=== PATIENT | female | born 1975 | race Caucasian/White ===

== ENCOUNTER → 2016-07-23 | Outpatient (CLI) | payer BC | LOC: SLEEP 21:30 | DX: G47.33 Obstructive sleep apnea (adult) (pediatric) (principal) | CPT/HCPCS: 95810 ==

== ENCOUNTER 2016-07-24 15:23 | Emergency (ER) | payer BC ==
[2016-07-24 18:13] LABS: HEMOGLOBIN 14.4 gm/dl (12.3-15.3); RED BLOOD COUNT 4.45 M/UL (4.00-5.10); WHITE BLOOD COUNT 9.7 K/UL (4.5-11.0)
[2016-07-24 18:41] LABS: BUN/CREATININE RATIO 13 (0-10)
== END 2016-07-24 22:20 | disposition home or self-care (01) ==
LOC: ER1 15:23
PROVIDERS: Physician Assistant
DX: R60.0 Localized edema (principal); Z88.5 Allergy status to narcotic agent; Z79.899 Other long term (current) drug therapy
CPT/HCPCS: 36415; 71020; 80053; 81001; 82550; 82553; 83874; 83880; 84443; 84484; 85025; 85379; 93005; 96374; 99284; J1940

== ENCOUNTER → 2020-03-31 | Outpatient (CLI) | payer BC, OTHER ==
[~2020-03-31] MED LIST: AMBIEN10 MG PO; ESTRACE1 MG PO; IBUPROFEN600 MG PO; NORCO 5-325 TA1 EACH PO; PERCOCET 5/325 T1 EA PO; ZOLOFT25 MG PO
[2020-03-31 17:08] LABS: HEMOGLOBIN 10.8 gm/dl (12.3-15.3); RED BLOOD COUNT 2.77 M/UL (4.00-5.10); WHITE BLOOD COUNT 16.1 K/UL (4.5-11.0)
== END ==
LOC: LAB 16:02
PROVIDERS: Internal Medicine
DX: R10.84 Generalized abdominal pain (principal); R30.0 Dysuria
CPT/HCPCS: 36415; 85025

== ENCOUNTER → 2020-09-02 | Outpatient (CLI) | payer BC, OTHER ==
[2020-09-02 17:38] LABS: HEMOGLOBIN 8.3 gm/dl (12.3-15.3); RED BLOOD COUNT 2.39 M/UL (4.00-5.10); WHITE BLOOD COUNT 7.1 K/UL (4.5-11.0)
== END ==
LOC: LAB 15:28
PROVIDERS: Internal Medicine
DX: D59.19 Other autoimmune hemolytic anemia (principal)
CPT/HCPCS: 36415; 85025

== ENCOUNTER → 2020-10-07 | Outpatient (CLI) | payer BC ==
[2020-10-07 14:20] LABS: HEMOGLOBIN 7.6 gm/dl (12.3-15.3)
== END ==
LOC: LAB 13:18
PROVIDERS: Internal Medicine
DX: D59.19 Other autoimmune hemolytic anemia (principal)
CPT/HCPCS: 36415; 85014; 85018; 86850; 86900; 86901; 86920; 86922; J7050; P9016

== ENCOUNTER → 2020-10-08 | Outpatient (CLI) | payer BC | LOC: OPSV 09:34 | DX: D59.19 Other autoimmune hemolytic anemia (principal); D59.10 Autoimmune hemolytic anemia, unspecified | CPT/HCPCS: 36430; J7050; P9016 ==

== ENCOUNTER → 2020-10-27 | Outpatient (CLI) | payer BC ==
[2020-10-27 17:04] LABS: RED BLOOD COUNT 2.38 M/UL (4.00-5.10); WHITE BLOOD COUNT 5.4 K/UL (4.5-11.0)
== END ==
LOC: LAB 16:25
PROVIDERS: Internal Medicine
DX: D59.19 Other autoimmune hemolytic anemia (principal)
CPT/HCPCS: 82728; 83540; 83550; 85025

== ENCOUNTER → 2020-11-02 | Outpatient (CLI) | payer BC ==
[2020-11-04 11:14] LABS: CERULOPLASMIN 36.5 mg/dL (19.0-39.0)
== END ==
LOC: LAB 17:39
PROVIDERS: Internal Medicine
DX: E83.00 Disorder of copper metabolism, unspecified (principal)
CPT/HCPCS: 36415; 82390; 82525; 83655; 84630

== ENCOUNTER → 2020-12-03 | Outpatient (CLI) | payer BC ==
[2020-12-03 12:11] LABS: HEMOGLOBIN 8.1 gm/dl (12.3-15.3); RED BLOOD COUNT 2.33 M/UL (4.00-5.10)
== END ==
LOC: LAB 11:45
PROVIDERS: Internal Medicine
DX: D59.10 Autoimmune hemolytic anemia, unspecified (principal)
CPT/HCPCS: 36415; 85025

== ENCOUNTER → 2020-12-23 | Outpatient (CLI) | payer BC ==
[2020-12-23 08:56] LABS: RED BLOOD COUNT 1.95 M/UL (4.00-5.10); WHITE BLOOD COUNT 3.3 K/UL (4.5-11.0)
[2020-12-23 09:00] LABS: HEMOGLOBIN 6.5 gm/dl (12.3-15.3)
== END ==
LOC: LAB 08:29
PROVIDERS: Internal Medicine
DX: D59.19 Other autoimmune hemolytic anemia (principal)
CPT/HCPCS: 36415; 85025; 86850; 86870; 86900; 86901; 86920; 86922; P9016

== ENCOUNTER → 2020-12-24 | Outpatient (CLI) | payer BC | LOC: OPSV 08:45 | DX: D59.19 Other autoimmune hemolytic anemia (principal) | CPT/HCPCS: 36430; P9016 ==

== ENCOUNTER → 2020-12-27 | Outpatient (CLI) | payer BC ==
[2020-12-27 16:12] LABS: RED BLOOD COUNT 2.72 M/UL (4.00-5.10); WHITE BLOOD COUNT 5.4 K/UL (4.5-11.0)
[2020-12-27 16:17] LABS: HEMOGLOBIN 8.8 gm/dl (12.3-15.3)
== END ==
LOC: LAB 15:36
PROVIDERS: Internal Medicine
DX: D59.19 Other autoimmune hemolytic anemia (principal)
CPT/HCPCS: 85025

== ENCOUNTER → 2020-12-31 | Outpatient (CLI) | payer BC ==
[2020-12-31 16:33] LABS: HEMOGLOBIN 8.1 gm/dl (12.3-15.3); RED BLOOD COUNT 2.5 M/UL (4.00-5.10); WHITE BLOOD COUNT 5.9 K/UL (4.5-11.0)
== END ==
LOC: LAB 15:49
PROVIDERS: Internal Medicine
DX: D59.19 Other autoimmune hemolytic anemia (principal)
CPT/HCPCS: 36415; 85025

== ENCOUNTER → 2021-01-07 | Outpatient (CLI) | payer BC | LOC: EROP 17:36 | DX: D50.9 Iron deficiency anemia, unspecified (principal) | CPT/HCPCS: 36430 ==

== ENCOUNTER → 2021-01-13 | Outpatient (CLI) | payer BC ==
[2021-01-13 16:44] LABS: HEMOGLOBIN 8.1 gm/dl (12.3-15.3); RED BLOOD COUNT 2.48 M/UL (4.00-5.10); WHITE BLOOD COUNT 5.6 K/UL (4.5-11.0)
== END ==
LOC: LAB 15:48
PROVIDERS: Internal Medicine
DX: D59.19 Other autoimmune hemolytic anemia (principal)
CPT/HCPCS: 36415; 82728; 83540; 83550; 85025

== ENCOUNTER → 2021-01-18 | Outpatient (CLI) | payer BC ==
[2021-01-18 16:56] LABS: HEMOGLOBIN 7.4 gm/dl (12.3-15.3); RED BLOOD COUNT 2.3 M/UL (4.00-5.10); WHITE BLOOD COUNT 7.2 K/UL (4.5-11.0)
== END ==
LOC: LAB 15:55
PROVIDERS: Internal Medicine
DX: D59.10 Autoimmune hemolytic anemia, unspecified (principal)
CPT/HCPCS: 36415; 85025

== ENCOUNTER → 2021-01-22 | Outpatient (CLI) | payer BC ==
[2021-01-22 09:18] LABS: RED BLOOD COUNT 2.11 M/UL (4.00-5.10); WHITE BLOOD COUNT 4.5 K/UL (4.5-11.0)
[2021-01-22 09:59] LABS: HEMOGLOBIN 6.8 gm/dl (12.3-15.3)
== END ==
LOC: LAB 08:52
PROVIDERS: Internal Medicine
DX: D59.19 Other autoimmune hemolytic anemia (principal)
CPT/HCPCS: 36415; 85025; 86850; 86900; 86901; 86920; 86922; P9016

== ENCOUNTER → 2021-01-23 | Outpatient (CLI) | payer BC | LOC: EROP 08:06 | DX: D59.19 Other autoimmune hemolytic anemia (principal) | CPT/HCPCS: 36430; P9016 ==

== ENCOUNTER → 2021-01-27 | Outpatient (CLI) | payer BC ==
[2021-01-27 16:16] LABS: HEMOGLOBIN 7.4 gm/dl (12.3-15.3); RED BLOOD COUNT 2.32 M/UL (4.00-5.10); WHITE BLOOD COUNT 7.3 K/UL (4.5-11.0)
== END ==
LOC: LAB 15:57
PROVIDERS: Internal Medicine
DX: D59.19 Other autoimmune hemolytic anemia (principal)
CPT/HCPCS: 85025

== ENCOUNTER → 2021-02-02 | Outpatient (CLI) | payer BC | LOC: OPSV 02-01 08:00 | DX: D59.19 Other autoimmune hemolytic anemia (principal) | CPT/HCPCS: 36430; J7050 ==

== ENCOUNTER → 2021-02-16 | Outpatient (CLI) | payer BC ==
[2021-02-16 12:54] LABS: HEMOGLOBIN 7.5 gm/dl (12.3-15.3)
== END ==
LOC: OPSV 02-15 10:00
PROVIDERS: Internal Medicine
DX: D59.19 Other autoimmune hemolytic anemia (principal)
CPT/HCPCS: 36415; 36430; 85014; 85018

== ENCOUNTER → 2021-02-19 | Outpatient (CLI) | payer BC ==
[~2021-02-19] MED LIST changes: +ZOLPIDEM TART12.5 MG PO
[2021-02-19 12:15] LABS: HEMOGLOBIN 7.1 gm/dl (12.3-15.3); RED BLOOD COUNT 2.3 M/UL (4.00-5.10); WHITE BLOOD COUNT 4.3 K/UL (4.5-11.0)
== END ==
LOC: LAB 11:59
PROVIDERS: Internal Medicine
DX: Z53.9 Procedure and treatment not carried out, unspecified reason (principal)
CPT/HCPCS: 85027

== ENCOUNTER → 2021-02-22 | Outpatient (CLI) | payer BC ==
[~2021-02-22] MED LIST changes: -ZOLPIDEM TART12.5 MG PO
[2021-02-22 15:42] LABS: HEMOGLOBIN 6.4 gm/dl (12.3-15.3)
== END ==
LOC: LAB 13:34
PROVIDERS: Internal Medicine
DX: D59.19 Other autoimmune hemolytic anemia (principal)
CPT/HCPCS: 36415; 85014; 85018; 86850; 86870; 86880; 86902; 86920; 86922

== ENCOUNTER → 2021-02-24 | Outpatient (CLI) | payer BC ==
[~2021-02-24] MED LIST changes: +ZOLPIDEM TART12.5 MG PO
== END ==
LOC: OPSV 08:22
DX: D59.19 Other autoimmune hemolytic anemia (principal)
CPT/HCPCS: 36430; J7050

== ENCOUNTER → 2021-03-03 | Day surgery (SDC) | payer BC ==
[2021-03-03 06:28] LABS: RED BLOOD COUNT 2.4 M/UL (4.00-5.10); WHITE BLOOD COUNT 4.8 K/UL (4.5-11.0)
== END | disposition home or self-care (01) ==
LOC: OR 05:25
PROVIDERS: Surgery
DX: D59.10 Autoimmune hemolytic anemia, unspecified (principal); D69.6 Thrombocytopenia, unspecified; E78.5 Hyperlipidemia, unspecified; K21.9 Gastro-esophageal reflux disease without esophagitis; E66.01 Morbid (severe) obesity due to excess calories; Z68.41 Body mass index [BMI] 40.0-44.9, adult; Z88.5 Allergy status to narcotic agent; Z79.899 Other long term (current) drug therapy; Z20.822 Contact with and (suspected) exposure to COVID-19
CPT/HCPCS: 36415; 71045; 77001; 85027; 86850; 86900; 86901; 86920; 86922; C1769; C1788; J0690; J1100; J1642; J2250; J2405; J2704; J2765; J3010; J7030; J7040; J7120

== ENCOUNTER → 2021-03-05 | Outpatient (CLI) | payer BC | LOC: EROP 13:17 | DX: Z53.9 Procedure and treatment not carried out, unspecified reason (principal) | CPT/HCPCS: 36430; P9016 ==

== ENCOUNTER → 2021-03-12 | Outpatient (CLI) | payer BC ==
[2021-03-12 07:36] LABS: RED BLOOD COUNT 2.71 M/UL (4.00-5.10); WHITE BLOOD COUNT 7.1 K/UL (4.5-11.0)
== END ==
LOC: LAB 07:19
PROVIDERS: Internal Medicine
DX: D59.19 Other autoimmune hemolytic anemia (principal)
CPT/HCPCS: 36415; 85027

== ENCOUNTER → 2021-03-16 | Outpatient (CLI) | payer BC ==
[2021-03-16 15:32] LABS: HEMOGLOBIN 7.4 gm/dl (12.3-15.3)
== END ==
LOC: LAB 15:10
PROVIDERS: Internal Medicine
DX: D59.19 Other autoimmune hemolytic anemia (principal)
CPT/HCPCS: 36415; 85014; 85018

== ENCOUNTER → 2021-03-22 | Outpatient (CLI) | payer BC ==
[~2021-03-22] VITALS: Ht 165.1 cm; Wt 95.3 kg
== END ==
LOC: OPSV 10:38
DX: D59.19 Other autoimmune hemolytic anemia (principal)
CPT/HCPCS: 36430; J1642; J7050

== ENCOUNTER → 2021-03-30 | Outpatient (CLI) | payer BC ==
[~2021-03-30] VITALS: Ht 165.1 cm; Wt 95.3 kg
[2021-03-30 12:31] LABS: HEMOGLOBIN 7.5 gm/dl (12.3-15.3)
[2021-03-31 06:11] LABS: A/G RATIO 1.3 (1.2-2.2); BILIRUBIN, TOTAL 0.8 mg/dL (0.0-1.2); CALCIUM, SERUM 8.7 mg/dL (8.7-10.2); CREATININE, SERUM 0.56 mg/dL (0.57-1.00); GLOBULIN, TOTAL 2.8 g/dL (1.5-4.5); POTASSIUM, SERUM 4.4 mmol/L (3.5-5.2); PROTEIN, TOTAL, SERUM 6.4 g/dL (6.0-8.5)
== END ==
LOC: LAB 10:52
PROVIDERS: Internal Medicine
DX: D59.19 Other autoimmune hemolytic anemia (principal)
CPT/HCPCS: 80053; 83615; 85014; 85018; 87040; J1642

== ENCOUNTER → 2021-04-05 | Outpatient (CLI) | payer BC ==
[2021-04-05 10:40] LABS: HEMOGLOBIN 7.5 gm/dl (12.3-15.3); RED BLOOD COUNT 2.56 M/UL (4.00-5.10); WHITE BLOOD COUNT 11.5 K/UL (4.5-11.0)
== END ==
LOC: LAB 10:15
PROVIDERS: Internal Medicine
DX: D59.19 Other autoimmune hemolytic anemia (principal)
CPT/HCPCS: 36415; 85025

== ENCOUNTER 2021-04-11 08:07 | Emergency (ER) | payer BC ==
[2021-04-11 08:57] LABS: RED BLOOD COUNT 1.96 M/UL (4.00-5.10)
[2021-04-11 09:05] LABS: HEMOGLOBIN 6.3 gm/dl (12.3-15.3)
[2021-04-11 09:20] LABS: BUN/CREATININE RATIO 29 (0-10)
[2021-04-11] MEDS ORDERED: LEVOFLOXACIN750 MG PO (18:50)
[2021-04-11] MEDS ORDERED: LEVOFLOXACIN500 MG PO (21:45)
[2021-04-11] MEDS ORDERED: DECADRON4 MG PO (21:45)
== END 2021-04-11 23:31 | disposition home or self-care (01) ==
LOC: ER1 08:07
PROVIDERS: Student in an Organized Health Care Education/Training Program
DX: U07.1 COVID-19 (principal); J12.82 Pneumonia due to coronavirus disease 2019; N39.0 Urinary tract infection, site not specified; Z90.710 Acquired absence of both cervix and uterus; D64.9 Anemia, unspecified
CPT/HCPCS: 0240U; 71045; 80048; 80076; 81001; 82550; 82553; 82962; 83605; 83690; 84484; 84702; 85025; 85379; 85652; 86140; 86850; 86900; 86901; 86920; 86922; 87040; 87081; 87880; 93005; 96374; 96375; 99284; J0696; J1956; J7050; P9016; Q9967

== ENCOUNTER → 2021-04-21 | Outpatient (CLI) | payer BC ==
[~2021-04-21] MED LIST changes: +DECADRON4 MG PO; +LEVOFLOXACIN500 MG PO; +LEVOFLOXACIN750 MG PO
[2021-04-22 08:01] LABS: HEMOGLOBIN 5.1 gm/dl (12.3-15.3)
[2021-04-23 08:14] LABS: HBSAG SCREEN Negative (Negative); HEP A AB, IGM Negative (Negative); HEP B CORE AB, IGM Negative (Negative); HEP C VIRUS AB 0.2 (0.0-0.9)
== END ==
LOC: LAB 17:08
PROVIDERS: Internal Medicine
DX: D59.19 Other autoimmune hemolytic anemia (principal)
CPT/HCPCS: 80074; 85014; 85018; 86850; 86900; 86901; 86902

== ENCOUNTER → 2021-04-22 | Outpatient (CLI) | payer BC | LOC: OPSV 11:00 | DX: D59.19 Other autoimmune hemolytic anemia (principal) | CPT/HCPCS: 36430; J1642 ==

== ENCOUNTER → 2021-04-26 | Outpatient (CLI) | payer BC ==
[2021-04-26 16:23] LABS: RED BLOOD COUNT 1.99 M/UL (4.00-5.10); WHITE BLOOD COUNT 4.6 K/UL (4.5-11.0)
== END ==
LOC: LAB 15:48
PROVIDERS: Internal Medicine
DX: D59.19 Other autoimmune hemolytic anemia (principal)
CPT/HCPCS: 36415; 85025; 86850; 86900; 86901

== ENCOUNTER → 2021-04-27 | Outpatient (CLI) | payer BC ==
[~2021-04-27] VITALS: Ht 165.1 cm; Wt 95.3 kg
== END ==
LOC: OPSV 10:19
DX: D59.19 Other autoimmune hemolytic anemia (principal); Z45.2 Encounter for adjustment and management of vascular access device; Z88.5 Allergy status to narcotic agent
CPT/HCPCS: 36591; 86850; 86900; 86901; 86922; J1642; J7050; P9016

== ENCOUNTER → 2021-04-28 | Outpatient (CLI) | payer BC | LOC: OPSV 08:00 | DX: D59.19 Other autoimmune hemolytic anemia (principal) | CPT/HCPCS: 36430; J1642 ==

== ENCOUNTER → 2021-05-04 | Outpatient (CLI) | payer BC ==
[2021-05-04 07:13] LABS: HEMOGLOBIN 7.5 gm/dl (12.3-15.3); RED BLOOD COUNT 2.64 M/UL (4.00-5.10); WHITE BLOOD COUNT 7.5 K/UL (4.5-11.0)
== END ==
LOC: LAB 06:57
PROVIDERS: Internal Medicine
DX: D59.19 Other autoimmune hemolytic anemia (principal)
CPT/HCPCS: 36415; 85025

== ENCOUNTER → 2021-05-11 | Outpatient (CLI) | payer BC ==
[2021-05-11 09:12] LABS: RED BLOOD COUNT 2.37 M/UL (4.00-5.10); WHITE BLOOD COUNT 4.6 K/UL (4.5-11.0)
[2021-05-11 09:27] LABS: HEMOGLOBIN 6.9 gm/dl (12.3-15.3)
== END ==
LOC: LAB 08:37
PROVIDERS: Internal Medicine
DX: D59.19 Other autoimmune hemolytic anemia (principal)
CPT/HCPCS: 36415; 85025

== ENCOUNTER → 2021-05-16 | Outpatient (CLI) | payer BC ==
[2021-05-16 14:30] LABS: RED BLOOD COUNT 2.15 M/UL (4.00-5.10); WHITE BLOOD COUNT 10.5 K/UL (4.5-11.0)
== END ==
LOC: LAB 13:57
PROVIDERS: Internal Medicine
DX: D59.19 Other autoimmune hemolytic anemia (principal)
CPT/HCPCS: 36415; 85025; 86850; 86900; 86901; 86920; 86922; P9016

== ENCOUNTER → 2021-05-17 | Outpatient (CLI) | payer BC ==
[~2021-05-17] VITALS: Ht 165.1 cm; Wt 95.3 kg
== END ==
LOC: OPSV 11:34
DX: D59.19 Other autoimmune hemolytic anemia (principal)
CPT/HCPCS: 36430; J1642

== ENCOUNTER → 2021-06-01 | Outpatient (CLI) | payer BC ==
[2021-06-01 08:07] LABS: RED BLOOD COUNT 2.4 M/UL (4.00-5.10); WHITE BLOOD COUNT 5.5 K/UL (4.5-11.0)
[2021-06-01 08:20] LABS: HEMOGLOBIN 6.9 gm/dl (12.3-15.3)
== END ==
LOC: LAB 07:00
PROVIDERS: Internal Medicine
DX: D59.19 Other autoimmune hemolytic anemia (principal)
CPT/HCPCS: 36415; 85025; 86850; 86900; 86901; 86920; 86922; P9040

== ENCOUNTER → 2021-06-06 | Outpatient (CLI) | payer BC ==
[2021-06-06 11:15] LABS: HEMOGLOBIN 7.3 gm/dl (12.3-15.3); RED BLOOD COUNT 2.59 M/UL (4.00-5.10); WHITE BLOOD COUNT 3.9 K/UL (4.5-11.0)
== END ==
LOC: LAB 10:59
PROVIDERS: Internal Medicine
DX: D59.19 Other autoimmune hemolytic anemia (principal)
CPT/HCPCS: 36415; 85025

== ENCOUNTER → 2021-06-08 | Outpatient (CLI) | payer BC ==
[~2021-06-08] VITALS: Ht 165.1 cm; Wt 95.3 kg
[2021-06-08 07:10] LABS: RED BLOOD COUNT 2.43 M/UL (4.00-5.10); WHITE BLOOD COUNT 3.2 K/UL (4.5-11.0)
[2021-06-08 07:13] LABS: HEMOGLOBIN 6.7 gm/dl (12.3-15.3)
== END ==
LOC: LAB 06:49
PROVIDERS: Internal Medicine
DX: D59.19 Other autoimmune hemolytic anemia (principal)
CPT/HCPCS: 36415; 85025; 86850; 86920; 86922; 96365; J1642; J7050; P9040

== ENCOUNTER → 2021-06-22 | Outpatient (CLI) | payer BC ==
[2021-06-22 07:49] LABS: HEMOGLOBIN 7.8 gm/dl (12.3-15.3); RED BLOOD COUNT 2.71 M/UL (4.00-5.10); WHITE BLOOD COUNT 5.8 K/UL (4.5-11.0)
== END ==
LOC: LAB 07:24
PROVIDERS: Internal Medicine
DX: D59.19 Other autoimmune hemolytic anemia (principal)
CPT/HCPCS: 36415; 85025

== ENCOUNTER → 2021-06-29 | Outpatient (CLI) | payer BC ==
[2021-06-29 07:30] LABS: RED BLOOD COUNT 2.42 M/UL (4.00-5.10); WHITE BLOOD COUNT 5.6 K/UL (4.5-11.0)
[2021-06-29 07:31] LABS: HEMOGLOBIN 6.6 gm/dl (12.3-15.3)
== END ==
LOC: LAB 07:04
PROVIDERS: Internal Medicine
DX: D59.19 Other autoimmune hemolytic anemia (principal)
CPT/HCPCS: 36415; 85025; 86850; 86900; 86901; 86920; 86922; P9016

== ENCOUNTER → 2021-06-30 | Outpatient (CLI) | payer BC ==
[~2021-06-30] VITALS: Ht 165.1 cm; Wt 95.3 kg
== END ==
LOC: OPSV 08:00
DX: D59.19 Other autoimmune hemolytic anemia (principal)
CPT/HCPCS: 36430; J1642; P9016

== ENCOUNTER → 2021-07-06 | Outpatient (CLI) | payer BC ==
[2021-07-06 07:06] LABS: HEMOGLOBIN 7.2 gm/dl (12.3-15.3); RED BLOOD COUNT 2.7 M/UL (4.00-5.10); WHITE BLOOD COUNT 7.2 K/UL (4.5-11.0)
== END ==
LOC: LAB 06:41
PROVIDERS: Internal Medicine
DX: D59.19 Other autoimmune hemolytic anemia (principal)
CPT/HCPCS: 36415; 85025

== ENCOUNTER → 2021-07-14 | Outpatient (CLI) | payer BC | LOC: OPSV 10:52 | DX: D59.19 Other autoimmune hemolytic anemia (principal) | CPT/HCPCS: 36430; J1642; J7050 ==

== ENCOUNTER → 2021-07-20 | Outpatient (CLI) | payer BC ==
[2021-07-20 07:53] LABS: RED BLOOD COUNT 2.45 M/UL (4.00-5.10); WHITE BLOOD COUNT 3.9 K/UL (4.5-11.0)
[2021-07-20 07:54] LABS: HEMOGLOBIN 6.7 gm/dl (12.3-15.3)
== END ==
LOC: LAB 07:11
PROVIDERS: Internal Medicine
DX: D59.19 Other autoimmune hemolytic anemia (principal)
CPT/HCPCS: 36415; 85025; 86850; 86900; 86901; 86920; 86922; P9016

== ENCOUNTER → 2021-07-27 | Outpatient (CLI) | payer BC ==
[2021-07-27 07:34] LABS: RED BLOOD COUNT 2.48 M/UL (4.00-5.10); WHITE BLOOD COUNT 6.6 K/UL (4.5-11.0)
== END ==
LOC: LAB 07:12
PROVIDERS: Internal Medicine
DX: D59.19 Other autoimmune hemolytic anemia (principal)
CPT/HCPCS: 36415; 85025

== ENCOUNTER → 2021-08-02 | Outpatient (CLI) | payer BC ==
[2021-08-02 07:42] LABS: RED BLOOD COUNT 2.14 M/UL (4.00-5.10); WHITE BLOOD COUNT 4.3 K/UL (4.5-11.0)
[2021-08-02 07:50] LABS: HEMOGLOBIN 6.1 gm/dl (12.3-15.3)
== END ==
LOC: LAB 07:07
PROVIDERS: Internal Medicine
DX: D59.19 Other autoimmune hemolytic anemia (principal)
CPT/HCPCS: 36415; 85025; 86850; 86900; 86901; 86920; 86922; P9016

== ENCOUNTER → 2021-08-10 | Outpatient (CLI) | payer BC ==
[2021-08-10 08:56] LABS: HEMOGLOBIN 7.2 gm/dl (12.3-15.3); RED BLOOD COUNT 2.48 M/UL (4.00-5.10); WHITE BLOOD COUNT 3.2 K/UL (4.5-11.0)
== END ==
LOC: LAB 07:28
PROVIDERS: Internal Medicine
DX: D59.19 Other autoimmune hemolytic anemia (principal)
CPT/HCPCS: 36415; 85025

== ENCOUNTER → 2021-08-17 | Outpatient (CLI) | payer BC ==
[2021-08-17 08:16] LABS: RED BLOOD COUNT 2.01 M/UL (4.00-5.10)
[2021-08-17 08:19] LABS: HEMOGLOBIN 5.8 gm/dl (12.3-15.3)
== END ==
LOC: LAB 07:21
PROVIDERS: Internal Medicine
DX: D59.19 Other autoimmune hemolytic anemia (principal)
CPT/HCPCS: 36415; 85025; 86850; 86900; 86901; 86920; 86922

== ENCOUNTER → 2021-08-18 | Outpatient (CLI) | payer BC | LOC: OPSV 11:40 | DX: D59.19 Other autoimmune hemolytic anemia (principal) | CPT/HCPCS: 36430; J1642 ==

== ENCOUNTER → 2021-08-24 | Outpatient (CLI) | payer BC ==
[2021-08-24 08:30] LABS: HEMOGLOBIN 7.1 gm/dl (12.3-15.3); RED BLOOD COUNT 2.56 M/UL (4.00-5.10); WHITE BLOOD COUNT 5.2 K/UL (4.5-11.0)
== END ==
LOC: LAB 07:22
PROVIDERS: Internal Medicine
DX: D59.19 Other autoimmune hemolytic anemia (principal)
CPT/HCPCS: 36415; 85025

== ENCOUNTER → 2021-08-31 | Outpatient (CLI) | payer BC ==
[2021-08-31 07:56] LABS: RED BLOOD COUNT 2.21 M/UL (4.00-5.10); WHITE BLOOD COUNT 2.9 K/UL (4.5-11.0)
[2021-08-31 07:57] LABS: HEMOGLOBIN 5.9 gm/dl (12.3-15.3)
== END ==
LOC: LAB 07:14
PROVIDERS: Internal Medicine
DX: D59.19 Other autoimmune hemolytic anemia (principal)
CPT/HCPCS: 36415; 85025; 86850; 86900; 86901; 86920; 86922

== ENCOUNTER → 2021-09-02 | Outpatient (CLI) | payer BC ==
[~2021-09-02] VITALS: Ht 160 cm; Wt 95.3 kg
[2021-09-03 08:13] LABS: COMPLEMENT C3, SERUM 162 mg/dL (82-167); COMPLEMENT C4, SERUM 31 mg/dL (12-38)
[2021-09-04 16:08] LABS: ADAMTS13 ACTIVITY 86.3 % (>66.8)
== END ==
LOC: OPSV 09-01 12:00
PROVIDERS: Internal Medicine
DX: D59.19 Other autoimmune hemolytic anemia (principal)
CPT/HCPCS: 36430; 85397; 86160; 86162; J1642; J7050

== ENCOUNTER → 2021-09-07 | Outpatient (CLI) | payer BC ==
[2021-09-07 09:41] LABS: HEMOGLOBIN 8.3 gm/dl (12.3-15.3); RED BLOOD COUNT 2.92 M/UL (4.00-5.10); WHITE BLOOD COUNT 4.6 K/UL (4.5-11.0)
== END ==
LOC: LAB 09:17
PROVIDERS: Internal Medicine
DX: D59.19 Other autoimmune hemolytic anemia (principal)
CPT/HCPCS: 36415; 85025

== ENCOUNTER → 2021-09-15 | Outpatient (CLI) | payer BC | LOC: OPSV 10:51 | DX: D59.19 Other autoimmune hemolytic anemia (principal) | CPT/HCPCS: 36430; J1642; J7050 ==

== ENCOUNTER → 2021-10-03 | Outpatient (CLI) | payer BC | LOC: OPSV 07:46 | DX: D59.19 Other autoimmune hemolytic anemia (principal) | CPT/HCPCS: 36430; J1642; J7050 ==

== ENCOUNTER → 2021-10-11 | Outpatient (CLI) | payer BC ==
[~2021-10-11] VITALS: Ht 165.1 cm; Wt 95.3 kg
== END ==
LOC: OPSV 10-06 12:00
DX: D59.19 Other autoimmune hemolytic anemia (principal)
CPT/HCPCS: 36430; J1642; J7050

== ENCOUNTER → 2021-10-19 | Outpatient (CLI) | payer BC ==
[2021-10-19 16:20] LABS: HEMOGLOBIN 7.5 gm/dl (12.3-15.3); RED BLOOD COUNT 2.59 M/UL (4.00-5.10); WHITE BLOOD COUNT 5.1 K/UL (4.5-11.0)
== END ==
LOC: LAB 16:03
PROVIDERS: Internal Medicine
DX: D59.19 Other autoimmune hemolytic anemia (principal)
CPT/HCPCS: 36415; 85025

== ENCOUNTER → 2021-11-09 | Outpatient (CLI) | payer BC | LOC: OPSV 09:00 | DX: D59.19 Other autoimmune hemolytic anemia (principal) | CPT/HCPCS: 36430; J1642; J7050 ==

== ENCOUNTER → 2021-11-16 | Outpatient (CLI) | payer BC ==
[2021-11-16 07:07] LABS: HEMOGLOBIN 7.1 gm/dl (12.3-15.3); RED BLOOD COUNT 2.48 M/UL (4.00-5.10); WHITE BLOOD COUNT 3.7 K/UL (4.5-11.0)
== END ==
LOC: LAB 06:47
PROVIDERS: Internal Medicine
DX: D59.19 Other autoimmune hemolytic anemia (principal)
CPT/HCPCS: 36415; 85025

== ENCOUNTER → 2021-11-21 | Outpatient (CLI) | payer BC ==
[2021-11-21 08:07] LABS: RED BLOOD COUNT 2.28 M/UL (4.00-5.10); WHITE BLOOD COUNT 2.7 K/UL (4.5-11.0)
[2021-11-21 08:08] LABS: HEMOGLOBIN 6.7 gm/dl (12.3-15.3)
== END ==
LOC: LAB 07:15
PROVIDERS: Internal Medicine
DX: D59.19 Other autoimmune hemolytic anemia (principal)
CPT/HCPCS: 36415; 85025; 86850; 86900; 86901; 86920; 86922; P9016

== ENCOUNTER → 2021-11-22 | Outpatient (CLI) | payer BC ==
[~2021-11-22] VITALS: Ht 165.1 cm; Wt 95.3 kg
== END ==
LOC: OPSV 09:00
DX: D59.19 Other autoimmune hemolytic anemia (principal)
CPT/HCPCS: 36430; J1642; J7050

== ENCOUNTER → 2021-11-28 | Outpatient (CLI) | payer BC ==
[2021-11-28 11:19] LABS: RED BLOOD COUNT 2.45 M/UL (4.00-5.10); WHITE BLOOD COUNT 2.8 K/UL (4.5-11.0)
[2021-11-28 11:42] LABS: BUN/CREATININE RATIO 12 (0-10)
== END ==
LOC: LAB 10:53
PROVIDERS: Internal Medicine
DX: D59.19 Other autoimmune hemolytic anemia (principal)
CPT/HCPCS: 36415; 80053; 85025

== ENCOUNTER → 2021-11-30 | Outpatient (CLI) | payer BC ==
[~2021-11-30] VITALS: Ht 165.1 cm; Wt 95.3 kg
[2021-11-30 08:13] LABS: RED BLOOD COUNT 2.28 M/UL (4.00-5.10); WHITE BLOOD COUNT 3.1 K/UL (4.5-11.0)
[2021-11-30 08:20] LABS: HEMOGLOBIN 6.6 gm/dl (12.3-15.3)
== END ==
LOC: OPSV 07:30 → LAB 07:30
PROVIDERS: Internal Medicine
DX: D59.19 Other autoimmune hemolytic anemia (principal)
CPT/HCPCS: 36415; 36430; 85025; 86850; 86870; 86900; 86901; 86920; 86922; J1642; J7050; P9016

== ENCOUNTER → 2021-12-07 | Outpatient (CLI) | payer BC ==
[2021-12-07 08:08] LABS: RED BLOOD COUNT 2.21 M/UL (4.00-5.10); WHITE BLOOD COUNT 1.7 K/UL (4.5-11.0)
[2021-12-07 08:20] LABS: HEMOGLOBIN 6.7 gm/dl (12.3-15.3)
== END ==
LOC: LAB 07:12
PROVIDERS: Internal Medicine
DX: D59.19 Other autoimmune hemolytic anemia (principal)
CPT/HCPCS: 36415; 85025; 86850; 86900; 86901; 86920; 86922; P9016

== ENCOUNTER → 2021-12-08 | Outpatient (CLI) | payer BC ==
[~2021-12-08] VITALS: Ht 165.1 cm; Wt 95.3 kg
== END ==
LOC: OPSV 09:00
DX: D59.19 Other autoimmune hemolytic anemia (principal)
CPT/HCPCS: 36430; J1642